=== PATIENT | male | born 2000 | race Two or more races ===

== ENCOUNTER → 2025-04-13 | Outpatient (CLI) | payer OTHER, SELFPAY ==
--- NOTE | 2025-04-13 09:33 | XR_ITS ---
Examination: Abdomen sonogram, complete Date and time of exam: April 13, 2025 0953 hours INDICATIONS: Onset right upper abdominal pain beginning one week ago. Technique: Multiple real-time grayscale transabdominal sonographic images of the abdomen have been obtained. Findings: Normal gallbladder. Normal common bile duct 0.2 cm. Pancreatic head 2.5 cm Aorta not enlarged. Liver 14.9 cm fatty infiltration Normal hepatopedal portal venous flow Patent IVC Right kidney 9.7 cm cortex 1.4 cm Left kidney 10.3 cm cortex 1.7 cm Mild renal parenchymal scar formation Spleen 11.6 cm IMPRESSION: Normal gallbladder Normal common bile duct
== END | disposition home or self-care (01) ==
PROVIDERS: PCP Nurse Practitioner Family; Referring Provider Nurse Practitioner Family; Visit Provider Nurse Practitioner Family
DX: R10.11 Right upper quadrant pain (principal)
CPT/HCPCS: 76700

== ENCOUNTER 2025-07-03 23:35 | Emergency (ER) | payer OTHER, SELFPAY ==
[2025-07-03 23:35] VITALS: BMI 30.4
[2025-07-03 23:56] VITALS: BP 133/74; PULSE 68; RESP 18; TEMP 37.1; O2SAT 99
--- NOTE | 2025-07-04 00:06 | PD.EDWOUND ---
ED Wound/Laceration-RME/HPI General Chief Complaint: Wound/Laceration Stated Complaint: CUT ON RIGHT FINGER Time Seen by Provider: 07/04/25 00:02 Arrival date/time: 07/03/25 23:35 24M with no significant PMH presents to ED with skin injury on R index finger after he accidentally cut himself. Patient has not had a tetanus shot in the past 5 years. Limitations: no limitations Related Data Previous Rx's ?Medication ?Instructions ?Recorded ibuprofen 800 mg tablet 800 mg PO TID PRN pain #30 tabs 11/20/23 Allergies Allergy/AdvReac Type Severity Reaction Status Date / Time No Known Allergies Allergy Verified 11/20/23 10:12 Review of Systems Review of Systems Systems Reviewed: All systems reviewed, normal except as documented Integumentary/Breasts Skin/Breast: Reports as per HPI and Reports skin pain Past Medical History Past Medical History NEUROLOGIC: Negative Neurological Disorders CARDIAC: Negative Cardiac Disorders Social History SMOKING STATUS: Never smoker ED Exam General Limitations: Present no limitations General appearance: Present alert and in no apparent distress Head Head exam: Present atraumatic Neck Neck exam: Present normal inspection, full ROM and trachea midline Chest Chest inspection: Present normal inspection and symmetric chest wall rise Extremities Exam Extremities exam: Present full ROM Expanded Upper Extremity Exam Hand exam: Present full ROM and skin avulsion (R index finger 0.25 cm) Neurological Exam Neurological exam: Present alert, oriented X3 and CN II-XII intact Psychiatric Psychiatric exam: Present normal affect and normal mood Skin Skin exam: Present warm, dry, intact and normal color Course Quality Measures none Orders Category Date Time Status Wound Care NOW Care 07/04/25 00:03 Active TET,DIP/PERT AC (Adult)-Tdap [Boostrix Adult (Tdap) Med 07/04/25 00:03 Discontinued Vacc] 0.5 ml IMI .ONCE ONE Vital Signs Vital signs: Vital Signs Temperature 98.8 F 07/03/25 23:56 Pulse Rate 68 07/03/25 23:56 Respiratory Rate 18 07/03/25 23:56 Blood Pressure 133/74 H 07/03/25 23:56 Pulse Oximetry (%) 99 07/03/25 23:56 Oxygen Delivery Method Room Air 07/03/25 23:56 O2 at 99% on RA and WNLs Wound / Laceration MDM Narrative MDM Narrative:: 24M with no significant PMH presents to ED with skin injury on R index finger after he accidentally cut himself. Patient has not had a tetanus shot in the past 5 years. Physical exam reveals small 0.25 cm skin avulsion on R index finger. ROM intact. Patient is afebrile, calm, and alert. Wound cleaned and bandaged. Tdap and peer financial counselor given. Patient data External records reviewed:: [facility] previous records Clinical information provided by:: patient Social determinants that could affect healthcare access:: none Patient has the following chronic illnesses:: none How is presenting disease/condition affected by chronic disease/condition?: no chronic disease Evaluation data The following diagnostics were reviewed and interpreted by me:: other (specify) (none) Lab and/or radiology exams considered but not ordered:: not ordered Interpretation Summary: n/a Medications / Prescriptions Medications or Prescriptions considered but not ordered:: ordered Medication administrations:: Medication Administration History Discontinued Medications Diphtheria/Tetanus/Acell Pertussis (Diphth,Pertuss(Acell),Tet Vac 0.5 Ml Syr- Adult) 0.5 ml IMi .ONCE ONE Stop: 07/04/25 00:04 above Consultations Consultation(s) initiated? (list below): No Diagnosis Wound Differential Diagnosis: laceration, abrasion and avulsion of skin Most likely diagnosis given after review of the tests above:: skin avulsion Admission Indicated Admission indicated?: not indicated Admission Request Was there a request for admission?: No Disposition Plan Disposition Plan: Discharge Discharge Attestation Discharge Attestation: The patient and all family members were given an opportunity to ask questions and understood the discharge instructions. Discharge instructions specifically effects, indications for sooner follow up or return to the emergency department, and the expected course of current diagnosis. Patient condition: Stable Discharge Plan Plan Patient Disposition: HOME (Self Care) Discharge Disposition comment: Stable Prescriptions/Referrals Prescriptions/Med Rec: No Action ibuprofen 800 mg tablet 800 mg PO TID PRN (Reason: pain) Qty: 30 0RF Problem List Clinical Impression: Avulsion of skin Patient/Caregiver Discharge Instructions Education Materials: ED Skin Avulsion Additional Instructions: Please follow-up with PCP within 24-48 hours and return immediately if symptoms worsen. Keep wound covered until healed. Print Language: [place] Stand Alone Forms: Patient Portal Info Letter EDGARDO/[facility]ARA Supervising Physician EDGARDO/[facility] Supervising Physician: Dr. Wick
[2025-07-04] MEDS: DIPHTH,PERTUSS(ACELL),TET VAC 0.5 ML SYR- ADULT IMi (00:07)
[2025-07-04 00:18] VITALS: PULSE 85; RESP 14; TEMP 37; O2SAT 99
== END 2025-07-04 00:18 | disposition home or self-care (01) ==
LOC: SERX 07-04 00:41
PROVIDERS: Emergency Provider Emergency Medicine; PCP Nurse Practitioner Family
DX: S61.200A Unspecified open wound of right index finger without damage to nail, initial encounter (principal); W45.8XXA Other foreign body or object entering through skin, initial encounter; Z23 Encounter for immunization
CPT/HCPCS: 90471; 90715; 99284